=== PATIENT | male | born 1970 | race Caucasian/White ===

== ENCOUNTER 2021-07-23 08:43 | Outpatient (REF) | payer OTHER, SELFPAY ==
--- NOTE | ~2021-07-23 | XR_ITS ---
EXAMINATION: XR HAND, RIGHT CLINICAL INFORMATION: Right hand pain. COMPARISON: None TECHNIQUE: PA, lateral, and oblique views of the right hand. FINDINGS: There is no evidence of acute fracture or dislocation of the right hand. There is noted to be severe degenerative joint disease seen involving the 1st carpometacarpal joint with loss of joint space and prominent marginal spurring. The interphalangeal joints and metacarpophalangeal joints are maintained. There is some narrowing of the triscaphe joint. XR/XR hand RT min 3V IMPRESSION: Severe degenerative change of the 1st carpometacarpal joint without acute fracture or dislocation.
== END 2021-07-23 08:44 | disposition home or self-care (01) ==
LOC: HO.HOSX 08:43
PROVIDERS: Visit Provider Orthopaedic Surgery
DX: M18.11 Unilateral primary osteoarthritis of first carpometacarpal joint, right hand (principal); Z79.891 Long term (current) use of opiate analgesic; Z79.01 Long term (current) use of anticoagulants
CPT/HCPCS: 73130; 99202

== ENCOUNTER 2021-08-25 11:54 | Day surgery (SDC) | payer OTHER, SELFPAY ==
--- NOTE | ~2021-08-25 | FL_ITS ---
PROCEDURE: XR FLUOROSCOPY WITH IMAGES CLINICAL INFORMATION: Joint injection. COMPARISON: None. TECHNIQUE: Fluoroscopy performed by Dr. Cassie Womack Fluoroscopy time: 7.4 seconds Dose: 4201.7 uGy-cm2 Images: 1 FINDINGS: A single image of the wrist reveals needle positioned between the 1st carpometacarpal joint space contrast opacifying the soft tissues. Rest of the visualized carpal bones and the intercarpal joint space is maintained normal. FL/FL guidance in OR IMPRESSION: Fluoroscopy was provided to referring physician for joint injection.
--- NOTE | 2021-08-25 11:14 | PM.PRCOR ---
Brief Operative Note Date of procedure: 08/25/21 Pre-op diagnosis: right basal joint osteoarthritis Procedure: Injection #1 : The risks and benefits of a steroid injection including but not limited to risk of damage to blood vessels, nerve, tendon, infection, skin bleaching, persistent or worsening pain, and failure to improve symptoms were discussed with the patient and they wish to proceed with the steroid injection. Once consent was obtained the skin over the dorsum of the right basal joint was sterilely prepped. using the FluoroScan for needle guidance, the right basal joint was then injected with a combination of 1 mL of (40 mg/ml} Depo-Medrol and 0.25 % plain Marcaine. The patient appears to have tolerated the procedure well and with no complications. He had good early relief of symptoms. He may have his next injection not sooner than 4 months from now I educated him about the importance of activity modification. He will follow-up p.r.n.
[2021-08-25 12:40] VITALS: BMI 26.6
[2021-08-25 12:42] VITALS: BP 112/64; PULSE 63; RESP 18; TEMP 37.5; O2SAT 97
[2021-08-25 13:14] VITALS: BP 112/61; PULSE 59; RESP 20; TEMP 37.4; O2SAT 97
== END 2021-08-25 13:23 | disposition home or self-care (01) ==
PROVIDERS: PCP Internal Medicine; Visit Provider Orthopaedic Surgery
PROC: (CPT 20600; principal; 2021-08-25 12:50)
DX: M18.11 Unilateral primary osteoarthritis of first carpometacarpal joint, right hand (principal); M79.644 Pain in right finger(s); Z79.891 Long term (current) use of opiate analgesic; Z87.81 Personal history of (healed) traumatic fracture; Z79.01 Long term (current) use of anticoagulants; M41.9 Scoliosis, unspecified; Z88.8 Allergy status to other drugs, medicaments and biological substances
CPT/HCPCS: 20600; J1020